=== PATIENT | female | born 1975 | race Caucasian/White ===

== ENCOUNTER 2021-02-09 09:53 | Inpatient (IN) ==
[2021-02-09] MEDS ORDERED: cefOXitin 2,000 MG in Water for inj. (sterile) 10 ML IVP ONE (10:12)
[2021-02-09] MEDS ORDERED: Ringers Solution, Lactated 1,000 ML IVC SCH (10:15)
[2021-02-09] MEDS ORDERED: Ondansetron 4 MG/2 ML VIAL ONE ×2 (10:53→15:33)
[2021-02-09] MEDS ORDERED: *HR* FentaNYL (PF) 100 MCG/2 ML VIAL ONE ×3 (10:53→15:32)
[2021-02-09] MEDS ORDERED: *HR* Rocuronium Bromide 50 MG/5 ML VIAL ONE ×2 (10:53→14:14)
[2021-02-09] MEDS ORDERED: *HR* Midazolam HCl 2 MG/2 ML VIAL ONE (10:53)
[2021-02-09] MEDS ORDERED: Lidocaine HCL 4 ML Topical Solution (Laryng-O-Jet Kit Sterile Pak) TP ONE (10:53)
[2021-02-09] MEDS ORDERED: Lidocaine -MPF 2% 2 ML VIAL ONE (10:53)
[2021-02-09] MEDS ORDERED: *HR* Propofol 200 MG/20 ML VIAL IVP ONE (10:54)
[2021-02-09] MEDS ORDERED: Scopolamine Patch 1.5 MG PATCH.TD72 TD ONE (11:02)
[2021-02-09] MEDS ORDERED: Acetaminophen IV 1,000 MG/100 ML BAG IVPB ONE ×2 (11:02→13:08)
[2021-02-09] MEDS ORDERED: Ketorolac 30 MG/ML VIAL ONE ×3 (11:16→15:33)
[2021-02-09] MEDS ORDERED: Lidocaine/EPI 1:100k 1% 30 ML VIAL ONE (12:34)
[2021-02-09] MEDS ORDERED: *HR* HYDROMORPHONE 2 MG/ML VIAL ONE (13:37)
[2021-02-09] MEDS ORDERED: *HR* Remifentanil 1 MG VIAL IVP ONE (13:50)
[2021-02-09] MEDS ORDERED: Albumin Human 5% 12.5 GM/250 ML IV.SOLN ONE (14:11)
[2021-02-09] MEDS ORDERED: Naloxone 0.4 MG/ML INJ IVP PRN (15:03)
[2021-02-09] MEDS ORDERED: Ondansetron 4 MG/2 ML VIAL IVP PRN (15:03)
[2021-02-09] MEDS ORDERED: Scopolamine Patch 1.5 MG PATCH.TD72 ONE (15:32)
[2021-02-09] MEDS: *HR* FentaNYL (PF) 100 MCG/2 ML VIAL IVP PRN ×2 (15:33→15:50)
[2021-02-09] MEDS: Ketorolac 30 MG/ML VIAL IVP PRN ×2 (15:36→21:17)
[2021-02-09] MEDS ORDERED: cefOXitin 2,000 MG in Water for inj. (sterile) 10 ML IVP SCH (16:00)
[2021-02-09] MEDS: *HR* HYDROcodone/Acet 5/325 mg TABLET PO PRN ×2 (17:20→21:17)
[2021-02-09] MEDS: cefOXitin 2,000 MG in Water for inj. (sterile) 20 ML IVP SCH (20:13)
[2021-02-10] MEDS: Ketorolac 30 MG/ML VIAL IVP PRN (03:44)
[2021-02-10] MEDS: *HR* HYDROcodone/Acet 5/325 mg TABLET PO PRN ×4 (03:44→20:30)
[2021-02-10] MEDS: cefOXitin 2,000 MG in Water for inj. (sterile) 20 ML IVP SCH ×3 (03:51→20:31)
[2021-02-10 04:15] LABS: Basophils % 0.1 %; Hematocrit 33.8 % (35.3-44.9); Hemoglobin 10.6 g/dL (11.5-15.4); Immature Granulocytes % 0.4 % (0-4); Lymphocytes # 1.5 K/mcL (0.6-4.6); Lymphocytes % 12.4 %; Mean Corpuscular HGB Conc 31.4 g/dL (31.6-35.5); Mean Corpuscular Hemoglobin 28.5 pg (28.0-33.3); Mean Corpuscular Volume 90.9 fL (83.0-100.0); Mean Platelet Volume 9.2 fL (9.4-12.4); Monocytes # 0.8 K/mcL (0.0-1.3); Neutrophils # 9.4 K/mcL (1.6-8.9); Platelet Count 386 K/mcL (140-400); Red Blood Count 3.72 M/mcL (3.82-4.97); Red Cell Distribution Width 13.5 % (11.5-14.5); Segmented Neutrophils % 80.1 %; White Blood Count 11.7 K/mcL (4.3-11.1)
[2021-02-10 04:48] LABS: BUN/Creatinine Ratio 14 (6-26); Blood Urea Nitrogen 9 mg/dL (6-20); eGFR For African Americans > 60 (> 60); eGFR For Non-African Americans > 60 (> 60)
[2021-02-11] MEDS: *HR* HYDROcodone/Acet 5/325 mg TABLET PO PRN ×3 (01:22→12:14)
[2021-02-11] MEDS: cefOXitin 2,000 MG in Water for inj. (sterile) 20 ML IVP SCH (06:32)
[2021-02-11 09:00] VITALS: BP 114/79; PULSE 81; TEMP 98.4; O2SAT 95
== END 2021-02-11 12:05 | disposition home or self-care (01) | DRG 513 ==
LOC: SAMDAY 09:53 → 1NENUOBS 15:02
PROVIDERS: ADMIT Obstetrics & Gynecology; ATTEND Obstetrics & Gynecology